=== PATIENT | male | born 1955 | race Caucasian/White ===

== ENCOUNTER 2017-07-11 11:20 | Emergency (ER) | payer BC ==
[~2017-07-11] VITALS: Ht 160 cm; Wt 158.8 kg
[2017-07-11 12:45] LABS: BASOPHILS ABSOLUTE AUTO 0.02 K/mm3 (0.00-0.23); BASOPHILS PERCENT AUTO 0 % (0-2); EOSINOPHILS ABSOLUTE AUTO 0.09 K/mm3 (0.00-0.68); EOSINOPHILS PERCENT AUTO 2 % (0-6); Hematocrit 37.6 % (37.0-53.0); Hemoglobin 11.8 g/dL (13.5-17.5); IMMATURE GRAN ABSOLUTE AUTO 0.02 K/mm3 (0.00-0.10); IMMATURE GRAN PERCENT AUTO 0 % (0-1); LYMPHOCYTES ABSOLUTE AUTO 1.18 K/mm3 (0.84-5.20); LYMPHOCYTES PERCENT AUTO 22 % (21-46); MONOCYTES ABSOLUTE AUTO 0.35 K/mm3 (0.16-1.47); MONOCYTES PERCENT AUTO 7 % (4-13); Mean Corpuscular HGB 20.7 pg (26.0-34.0); Mean Corpuscular HGB Conc 31.4 g/dL (31.5-36.5); Mean Corpuscular Volume 66 fL (80-100); NEUTROPHILS ABSOLUTE AUTO 3.71 K/mm3 (1.96-9.15); NEUTROPHILS PERCENT AUTO 69 % (41-73); Platelet Count 111 K/mm3 (150-400); RDW Coefficient Variation 17.4 % (11.7-14.2); RDW Standard Deviation 38.4 fL (35.1-46.3); Red Blood Cell Count 5.69 M/mm3 (4.30-5.90); White Blood Cell Count 5.37 K/mm3 (4.00-11.30)
[2017-07-11 13:01] LABS: Alanine Aminotransfer (ALT/SGP 50 U/L (12-78); Albumin, Blood 3.6 g/dL (3.4-5.0); Alk Phos 48 U/L (50-136); Anion Gap 7 mmol/L (6-16); Aspartate Aminotrans (AST/SGOT 23 U/L (12-37); Bilirubin, Total 0.7 mg/dL (0.1-1.0); Blood Urea Nitrogen 19 mg/dL (8-24); Bun/Creatinine Ratio 18.1 (12.0-20.0); CO2, Blood 24 mmol/L (21-32); Calcium, Blood 8.8 mg/dL (8.5-10.1); Chloride, Blood 111 mmol/L (98-108); Creatinine, Blood 1.05 mg/dL (0.60-1.20); Globulin, Blood 3.5 g/dL (2.2-4.0); Glomerular Filtration Rate >60 (60-); Glucose, Blood 138 mg/dL (70-99); Sodium, Blood 142 mmol/L (136-145); Total Protein, Blood 7.1 g/dL (6.4-8.2); Troponin I <0.015 ng/mL (0.000-0.040)
[2017-07-11] MEDS ORDERED: Lasix20 MG PO (15:30)
[2017-07-11] MEDS ORDERED: Isosorbide Mono60 MG PO (15:36)
[2017-07-11] MEDS ORDERED: Cardizem CD 24240 MG PO (15:36)
[2017-07-11] MEDS ORDERED: XARELTO20 MG PO (15:36)
[2017-07-11] MEDS ORDERED: FLUV40 (15:36)
[2017-07-11] MEDS ORDERED: Bupropion Xl150 MG PO (15:36)
[2017-07-11] MEDS ORDERED: CARV25 PO (15:36)
[2017-07-11] MEDS ORDERED: GABA100 PO (15:36)
== END 2017-07-11 15:59 | disposition left against medical advice (07) ==
LOC: ER 11:20
PROVIDERS: Emergency Medicine
DX: I50.9 Heart failure, unspecified (principal); R06.00 Dyspnea, unspecified; J44.9 Chronic obstructive pulmonary disease, unspecified; Z88.8 Allergy status to other drugs, medicaments and biological substances; E66.01 Morbid (severe) obesity due to excess calories; I48.91 Unspecified atrial fibrillation; Z87.891 Personal history of nicotine dependence; Z68.44 Body mass index [BMI] 60.0-69.9, adult
CPT/HCPCS: 36415; 71046; 80053; 83880; 84484; 85025; 93005; 93010; 96374; 99284; J1940

== ENCOUNTER 2021-02-06 06:55 | Day surgery (SDC) | payer BC ==
[~2021-02-06] VITALS: Ht 162.6 cm; Wt 150.0 kg
[~2021-02-06 06:55] MED LIST: Aspir 8181 MG PO; BUME1 PO; Bupropion Xl150 MG PO; CARV25 PO; CYCL10 PO; Cardizem CD 24240 MG PO; Crestor20 MG PO; FLUV40; GABA100 PO; GABA300 PO; Isosorbide Mono60 MG PO; LOSA25 PO; Lasix20 MG PO; METF500 PO; NITR.4SL SL; TRAM50 PO; XARELTO20 MG PO
--- NOTE | 2021-02-06 08:42 | NUR ---
PT BACK TO RECOVERY ROOM AFTER PROCEDURE. SITTING UP IN RECLINER, AWAKE AND ALERT. DENIES PAIN OR DISCOMFORT. RIGHT RADIAL SITE WITH TR BAND AND SPLINT IN PLACE. VSS. CALL LIGHT IN REACH.
--- NOTE | 2021-02-06 09:50 | NUR ---
3mL AIR RELEASED FROM TR BAND. NO BLEEDING, OOZING OR HEMATOMA NOTED. WILL CONTINUE TO MONITOR
--- NOTE | 2021-02-06 09:57 | NUR ---
ADDITIONAL 3mL OF AIR RELEASED FROM TR BAND. NO BLEEDING, OOZING OR HEMATOMA NOTED. PT DENIES ANY PAIN. VSS. WILL CONTINUE TO MONITOR
--- NOTE | 2021-02-06 10:04 | NUR ---
ALL AIR RELEASED FROM TR BAND. NO BLEEDING, OOZING OR HEMATOMA NOTED. PT RESTING COMFORTABLY IN RECLINER. VSS. WILL CONTINUE TO MONITOR.
--- NOTE | 2021-02-06 11:01 | NUR ---
DISCHARGE PT AMBULATED TO RESTROOM AND DRESSED SELF WITH NO COMPLICATIONS. TR BAND REMOVED, NO BLEEDING, OOZING OR HEMATOMA NOTED. SITE CLEANED, CLOTH DOT DRESSING APPLIED. WHITE BOARD PLACED ON PTS R ARM AND R ARM IN A SLING. PT STATES HIS UNDERSTANDING OF SITE CARE AND DC INSTRUCTIONS AND DENIES ANY QUESTIONS OR CONCERNS UPON DC. IV REMOVED WITH CATH INTACT. VSS. PT SALBADOR NO PAIN. PT TAKEN TO EXIT VIA WHEELCHAIR WHERE NEPHEW WAS WAITING WITH CAR.
== END 2021-02-06 11:00 | disposition home or self-care (01) ==
LOC: MHTC 06:55
PROC: 02733ZZ Dilation of Coronary Artery, Four or More Arteries, Percutaneous Approach (ICD-10-PCS; principal; 2021-02-06)
DX: T82.855A Stenosis of coronary artery stent, initial encounter (principal); R94.39 Abnormal result of other cardiovascular function study; I11.0 Hypertensive heart disease with heart failure; I50.9 Heart failure, unspecified; I25.10 Atherosclerotic heart disease of native coronary artery without angina pectoris; E78.5 Hyperlipidemia, unspecified; I48.19 Other persistent atrial fibrillation; G47.33 Obstructive sleep apnea (adult) (pediatric); I25.9 Chronic ischemic heart disease, unspecified; E66.9 Obesity, unspecified; I25.2 Old myocardial infarction; Z95.5 Presence of coronary angioplasty implant and graft; Z79.01 Long term (current) use of anticoagulants; Z79.82 Long term (current) use of aspirin; Z79.899 Other long term (current) drug therapy; Z79.84 Long term (current) use of oral hypoglycemic drugs; Z88.8 Allergy status to other drugs, medicaments and biological substances; Y84.0 Cardiac catheterization as the cause of abnormal reaction of the patient, or of later complication, without mention of misadventure at the time of the procedure; E11.9 Type 2 diabetes mellitus without complications
CPT/HCPCS: 76937; 93454; 99152; 99153; C1769; C1887; C1894; J1644; J2250; J3010; J7030; J7050; Q9967

== ENCOUNTER 2021-03-06 08:52 | Day surgery (SDC) | payer BC ==
[~2021-03-06] VITALS: Ht 162.6 cm; Wt 154.0 kg
--- NOTE | 2021-03-06 10:17 | NUR ---
[address] DONAHUE AND HE GAVE PERMISSION FOR THE PATIENT TO TAKE HIS OWN NORCO ORALLY PRIOR TO THE PROCEDURE FOR CHRONIC BACK PAIN, HE TOOK THIS WITH A SMALL SIP OF WATER.
--- NOTE | 2021-03-06 11:12 | NUR ---
PATIENT RETURNED FROM THE [facility] VIS A RECLINER, CALL LIGHT IN REACH. PATIENT PLACED ON THE MONITOR. WILL NEED A SURGICAL CONSULT. NO PAIN NOTED AT THIS TIME. TR BAND IN PLACE WITH 18 ML OF AIR IN THE BAND.
--- NOTE | 2021-03-06 11:24 | NUR ---
DR. MORAES HERE TO DISCUSS RESULTS WITH PATIENT.
--- NOTE | 2021-03-06 12:25 | NUR ---
DR. DONAHUE AND DR. MORAES AT THE BEDSIDE AND BOTH SPOKE INDEPENDENTLY TO THE PATIENT REGARDING FINDINGS OF THE CATH AND PLAN OF CARE GOING FORWARD. ALL QUESTIONS ANSWERED. PATIENT WILL BE REFERRED TO [facility] FOR HIGH RISK PCI VERSUS SURGERY CONSULT.
--- NOTE | 2021-03-06 12:27 | NUR ---
BEGAND TAKING AIR OUT OF THE TR BAND. NO BLEEDING NOTED. NO HEMOTOMA NOTED.
[2021-03-06] MEDS ORDERED: 1/2 NS 250ml250 ML (12:50)
[2021-03-06] MEDS ORDERED: Aspir 8181 MG PO (12:50)
--- NOTE | 2021-03-06 13:29 | NUR ---
TR BAND IS FLAT AND PATIENT PIV THE LEFT HAND REMOVED. 1000 ML OF FLUID INFUSED ORDERED ADN HE IS DRINKING FLUIDS. UP OU OF THE CHAIR TO THE RESTROOM. GAIT STEADY. PATIENT DRESSED. CALLED HIS RIDE AND NEPHEW WILL BE HERE AT [address] PATIENT HOME.
--- NOTE | 2021-03-06 13:41 | NUR ---
PATIENT GATHERED ALL BELONGINGS AND TAKEN TO THE FREEDOM ENTRANCE TO MEET RIDE HOME.
== END 2021-03-06 13:45 | disposition home or self-care (01) ==
LOC: MHTC 08:52
DX: I25.119 Atherosclerotic heart disease of native coronary artery with unspecified angina pectoris (principal); R94.39 Abnormal result of other cardiovascular function study; I48.19 Other persistent atrial fibrillation; I25.2 Old myocardial infarction; G47.33 Obstructive sleep apnea (adult) (pediatric); I11.0 Hypertensive heart disease with heart failure; I50.9 Heart failure, unspecified; E11.9 Type 2 diabetes mellitus without complications; M19.90 Unspecified osteoarthritis, unspecified site; E66.9 Obesity, unspecified; E78.5 Hyperlipidemia, unspecified; Z79.01 Long term (current) use of anticoagulants; Z95.5 Presence of coronary angioplasty implant and graft; Z79.84 Long term (current) use of oral hypoglycemic drugs; Z88.8 Allergy status to other drugs, medicaments and biological substances; Z68.43 Body mass index [BMI] 50.0-59.9, adult
CPT/HCPCS: 76937; 85347; 92978; 93005; 93010; 93454; 99152; 99153; A9270; C1753; C1769; C1887; C1894; J1644; J2250; J2370; J3010; J7030; J7050; Q9967

== ENCOUNTER 2023-04-25 09:34 | Emergency (ER) | payer MEDICARE, OTHER ==
[~2023-04-25] VITALS: Ht 162.6 cm; Wt 142.4 kg
[~2023-04-25 09:34] MED LIST changes: +1/2 NS 250ml250 ML
[2023-04-25 10:10] VITALS: BP 131/75
[2023-04-25 10:59] LABS: BASOPHILS ABSOLUTE AUTO 0.03 K/mm3 (0.00-0.23); BASOPHILS PERCENT AUTO 0 % (0-2); EOSINOPHILS ABSOLUTE AUTO 0.13 K/mm3 (0.00-0.68); EOSINOPHILS PERCENT AUTO 2 % (0-6); Hematocrit 40.4 % (37.0-53.0); Hemoglobin 12.3 g/dL (13.5-17.5); IMMATURE GRAN ABSOLUTE AUTO 0.03 K/mm3 (0.00-0.10); IMMATURE GRAN PERCENT AUTO 0 % (0-1); LYMPHOCYTES ABSOLUTE AUTO 1.65 K/mm3 (0.84-5.20); LYMPHOCYTES PERCENT AUTO 24 % (21-46); MONOCYTES ABSOLUTE AUTO 0.57 K/mm3 (0.16-1.47); MONOCYTES PERCENT AUTO 8 % (4-13); Mean Corpuscular HGB 20.4 pg (26.0-34.0); Mean Corpuscular HGB Conc 30.4 g/dL (31.5-36.5); Mean Corpuscular Volume 67 fL (80-100); NEUTROPHILS PERCENT AUTO 65 % (41-73); Platelet Count 114 K/mm3 (150-400); RDW Standard Deviation 37.2 fL (35.1-46.3); Red Blood Cell Count 6.04 M/mm3 (4.30-5.90); White Blood Cell Count 6.91 K/mm3 (4.00-11.30)
[2023-04-25 11:12] LABS: Albumin, Blood 3.4 g/dL (3.4-5.0); Albumin/Globulin Ratio 0.8 (0.8-1.8); Bilirubin, Total 0.7 mg/dL (0.1-1.0); Bun/Creatinine Ratio 15.2 (12.0-20.0); Calcium, Blood 9.2 mg/dL (8.5-10.1); Creatinine, Blood 1.05 mg/dL (0.60-1.20); Potassium, Blood 3.9 mmol/L (3.5-5.5); Total Protein, Blood 7.4 g/dL (6.4-8.2)
[2023-04-25] MEDS ORDERED: Percocet 5-3251 EACH PO (13:26)
== END 2023-04-25 14:17 | disposition home or self-care (01) ==
LOC: ER 09:34
PROVIDERS: Physician Assistant
DX: R10.12 Left upper quadrant pain (principal); I50.9 Heart failure, unspecified; I48.91 Unspecified atrial fibrillation; Z95.9 Presence of cardiac and vascular implant and graft, unspecified; Z87.891 Personal history of nicotine dependence; Z79.82 Long term (current) use of aspirin; Z79.01 Long term (current) use of anticoagulants; Z79.899 Other long term (current) drug therapy; Z88.8 Allergy status to other drugs, medicaments and biological substances
CPT/HCPCS: 74177; 80053; 83690; 85025; 99284-25; A9270; Q9967

== ENCOUNTER 2023-11-15 21:37 | Inpatient (IN) | payer MEDICARE, OTHER ==
[~2023-11-15] VITALS: Ht 162.6 cm; Wt 137.6 kg
[~2023-11-15 21:37] MED LIST changes: -Crestor20 MG PO; -GABA300 PO; +ISOSORBIDE MONO60 MG PO; -Isosorbide Mono60 MG PO; -METF500 PO; +Percocet 5-3251 EACH PO; +ROSUVASTATIN CA20 MG PO
[2023-11-15 22:02] LABS: BASOPHILS ABSOLUTE AUTO 0.01 K/mm3 (0.00-0.23); BASOPHILS PERCENT AUTO 0 % (0-2); EOSINOPHILS ABSOLUTE AUTO 0.09 K/mm3 (0.00-0.68); EOSINOPHILS PERCENT AUTO 2 % (0-6); Hemoglobin 11.5 g/dL (13.5-17.5); IMMATURE GRAN ABSOLUTE AUTO 0.01 K/mm3 (0.00-0.10); IMMATURE GRAN PERCENT AUTO 0 % (0-1); LYMPHOCYTES ABSOLUTE AUTO 1.54 K/mm3 (0.84-5.20); LYMPHOCYTES PERCENT AUTO 27 % (21-46); MONOCYTES ABSOLUTE AUTO 0.42 K/mm3 (0.16-1.47); MONOCYTES PERCENT AUTO 7 % (4-13); Mean Corpuscular HGB 21.1 pg (26.0-34.0); Mean Corpuscular HGB Conc 31.1 g/dL (31.5-36.5); Mean Corpuscular Volume 68 fL (80-100); NEUTROPHILS ABSOLUTE AUTO 3.68 K/mm3 (1.96-9.15); NEUTROPHILS PERCENT AUTO 64 % (41-73); NRBC ABSOLUTE 0.04 K/mm3 (0.00-0.02); NRBC Auto 0.7 /100 WBC (0.0-0.2); Platelet Count 116 K/mm3 (150-400); RDW Coefficient Variation 18.3 % (11.7-14.2); RDW Standard Deviation 40.5 fL (35.1-46.3); Red Blood Cell Count 5.44 M/mm3 (4.30-5.90); White Blood Cell Count 5.75 K/mm3 (4.00-11.30)
[2023-11-15 22:20] LABS: Albumin, Blood 3.6 g/dL (3.4-5.0); Albumin/Globulin Ratio 1.1 (0.8-1.8); Bilirubin, Total 1.2 mg/dL (0.1-1.0); Bun/Creatinine Ratio 15.7 (12.0-20.0); Calcium, Blood 8.5 mg/dL (8.5-10.1); Creatinine, Blood 1.21 mg/dL (0.60-1.20); Globulin, Blood 3.2 g/dL (2.2-4.0); Potassium, Blood 3.8 mmol/L (3.5-5.5); Total Protein, Blood 6.8 g/dL (6.4-8.2)
[2023-11-15] MEDS ORDERED: Bumetanide 0.25 MG/ML 10ML Vial IV ONE (22:40)
[2023-11-16] VITALS (7 sets, daily range): BP systolic 103–135; BP diastolic 65–79
[2023-11-16 00:56] LABS: PCO2 Venous 39.5 mmHg (38-42); pH Blood Venous 7.39 (7.34-7.37)
[2023-11-16 00:57] LABS: Base Excess Venous -1.5 mmol/L; Bicarbonate Venous 22.7 mmol/L (24.0-30.0)
[2023-11-16] MEDS ORDERED: XARELTO20 MG PO (05:37)
[2023-11-16] MEDS ORDERED: CLOP75 PO (05:38)
[2023-11-16] MEDS ORDERED: DULO30 PO (05:40)
[2023-11-16] MEDS ORDERED: DILT120 PO (05:44)
--- NOTE | 2023-11-16 05:48 | NUR ---
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
[2023-11-16] MEDS ORDERED: Acetaminophen 325 MG TABLET PO PRN (08:00)
[2023-11-16] MEDS ORDERED: Ipratropium/Albuterol SulF 2.5-0.5MG/3 ML Amp INH PRN (08:25)
[2023-11-16] MEDS ORDERED: Carvedilol 25 MG Tab PO SCH ×2 (08:30→09:00)
[2023-11-16] MEDS ORDERED: Nitroglycerin 0.4 MG SUBL SL PRN (08:30)
[2023-11-16 08:35] LABS: Magnesium, Blood 2.2 mg/dL (1.6-2.4); Thyroid Stimulating Hormone 7.79 uIU/mL (0.360-4.800)
[2023-11-16] MEDS ORDERED: DULoxetine HCL 30 MG Cap DR PO SCH (09:00)
[2023-11-16] MEDS ORDERED: dilTIAZem HCL 120 MG CAP.CD PO SCH (09:00)
[2023-11-16] MEDS ORDERED: Empagliflozin 10 MG TAB PO SCH (09:00)
[2023-11-16] MEDS ORDERED: Losartan Potassium 25 MG Tab PO SCH (09:00)
[2023-11-16] MEDS ORDERED: Enoxaparin 40 MG/0.4 ML SYR SC SCH (09:00)
[2023-11-16] MEDS ORDERED: Isosorbide Mononitrate 60 MG TABCR PO SCH ×2 (09:00)
[2023-11-16] MEDS ORDERED: Bumetanide 0.25 MG/ML 4ML ViaL IV SCH (09:00)
[2023-11-16] MEDS ORDERED: Clopidogrel Bisulfate 75 MG Tab PO SCH (09:00)
[2023-11-16] MEDS ORDERED: Rosuvastatin Calcium 10 MG Tab PO SCH (09:00)
[2023-11-16] MEDS ORDERED: Insulin Human Lispro 100 Units/ML 3ML Syringe SC SCH (11:30)
[2023-11-16] MEDS ORDERED: Insulin Regular 100 UNIT/ML 10ML Vial SC SCH (12:00)
[2023-11-16] MEDS ORDERED: BUME1 PO (17:11)
[2023-11-16] MEDS ORDERED: GABA300 PO ×2 (17:30→17:31)
[2023-11-16] MEDS ORDERED: JARDIANCE10 MG PO (17:32)
[2023-11-16] MEDS ORDERED: METF500 PO (17:32)
--- NOTE | 2023-11-16 17:38 | NUR ---
PATIENT IS ALERT AND ORIENTED AND COOPERATIVE WITH CARE. ON RA. CPAP WHILE ASLEEP. CONTINUOUS PULSE OXIMETRY IN PLACE. INDEPENDENT IN HIS ROOM. WALKS IN THE HALLS. DAILY STANDING WEIGHT AND STRICT I&O'S. THE PATIENT'S SISTER VISITED HIM TODAY. NO NEW COMPLAINTS. WILL CONTINUE TO MONITOR
[2023-11-16] MEDS ORDERED: Rivaroxaban 10 MG Tab PO SCH (21:00)
[2023-11-17 02:24] VITALS: BP 105/66
--- NOTE | 2023-11-17 04:22 | NUR ---
SHIFT SUMMARY ADMITTED FOR ACUTE ON CHRONIC CHF. DNR CODE. PLAN IS TO SALLY, HOPEFUL FOR DC TODAY. LABS MONITORED INCLUDE THYROID. ACHS CBG'S LOW SS. INDEPENDENT. 3 LPM O2 PRN @ BASELINE. BIPAP @ HS. STRICT I&O'S, DAILY STANDING WEIGHTS. TELEMETRY: AFIB @ 72 BPM. ADA DIET. NO NEW CONCERNS THIS SHIFT.
[2023-11-17 06:36] LABS: Anion Gap 14 mmol/L (3-11); Blood Urea Nitrogen 20 mg/dL (8-24); Bun/Creatinine Ratio 18.5 (12.0-20.0); CO2, Blood 21 mmol/L (21-32); Calcium, Blood 8.8 mg/dL (8.5-10.1); Chloride, Blood 107 mmol/L (98-108); Creatinine, Blood 1.08 mg/dL (0.60-1.20); Free Thyroxine 0.94 ng/dL (0.70-1.60); Glomerular Filtration Rate 76 (60-); Glucose, Blood 133 mg/dL (70-99); Phosphorus, Blood 4.7 mg/dL (2.5-4.9); Potassium, Blood 3.3 mmol/L (3.5-5.5); Sodium, Blood 139 mmol/L (136-145)
[2023-11-17 07:32] VITALS: BP 124/75
[2023-11-17] MEDS ORDERED: LOSA25 PO (11:46)
--- NOTE | 2023-11-17 12:20 | NUR ---
DISCHARGE: PT D/C @1215 VIA WHEELCHAIR WITH FRIEND. [place] FAXED TO [facility] OF BUT PT STATED PCP TOOK PT OFF THIS MEDICATION ABOUT SIX MONTHS AGO AND HE STILL HAD A COUPLE BOTTLES AT HOME. ADVISED PT TO FOLLOW-UP WITH PCP NEXT APT REGARDING THIS MEDICATION. PT AWARE TO MAKE FOLLOW-UP APPOINTMENTS WITH PCP AND CARDIOLOGY. IV REMOVED BY CASTING OPERATOR HELPER W/O COMPLICATIONS. TELE SENT BACK. NO QUESTIONS AT TIME OF D/C.
[2023-11-17] MEDS ORDERED: Potassium Chloride 20 MEQ TabCR PO SCH (17:00)
== END 2023-11-17 12:18 | disposition home or self-care (01) | DRG 291 ==
LOC: ER 21:37 → ERHOLD 21:38 → MEDS 21:38
PROVIDERS: Emergency Medicine; Internal Medicine; ADMIT Family Medicine
DX: I11.0 Hypertensive heart disease with heart failure (principal); I50.23 Acute on chronic systolic (congestive) heart failure; J96.01 Acute respiratory failure with hypoxia; I48.20 Chronic atrial fibrillation, unspecified; E66.2 Morbid (severe) obesity with alveolar hypoventilation; N17.9 Acute kidney failure, unspecified; Z68.43 Body mass index [BMI] 50.0-59.9, adult; E11.9 Type 2 diabetes mellitus without complications; Z66 Do not resuscitate; I20.9 Angina pectoris, unspecified; D50.9 Iron deficiency anemia, unspecified; J44.9 Chronic obstructive pulmonary disease, unspecified; I25.2 Old myocardial infarction; Z95.5 Presence of coronary angioplasty implant and graft; Z98.890 Other specified postprocedural states; F17.210 Nicotine dependence, cigarettes, uncomplicated; Z88.8 Allergy status to other drugs, medicaments and biological substances; Z79.84 Long term (current) use of oral hypoglycemic drugs; Z79.899 Other long term (current) drug therapy
CPT/HCPCS: 36415; 71045; 80053; 80069; 82803; 82947; 83735; 83880; 84439; 84443; 84481; 84484; 85025; 93005; 93010; 93306; 94660; 94762; 96374; 97116; 97161; 97165; 99285-25; A9270

== ENCOUNTER → 2025-01-08 | Outpatient (CLI) | payer MEDICARE, OTHER ==
[~2025-01-08] MED LIST changes: +CLOP75 PO; +DILT120 PO; +DULO30 PO; +GABA300 PO; +JARDIANCE10 MG PO; +METF500 PO
== END ==
LOC: LAB SHORT 08:15 → LAB 08:15
DX: B35.1 Tinea unguium (principal); L60.2 Onychogryphosis
CPT/HCPCS: 88305; 88312